=== PATIENT | female | born 2000 | race Caucasian/White ===

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

== ENCOUNTER 2019-11-17 11:50 | Emergency (ER) | payer SELFPAY ==
[~2019-11-17] VITALS: Ht 162.6 cm; Wt 72.7 kg
[~2019-11-17 11:50] MED LIST: ROBAXIN500 MG PO
[2019-11-17 12:09] VITALS: Ht 162.6 cm; Wt 72.7 kg
[2019-11-17 12:53] LABS: BASOPHILS 0.1 % (0-2); EOSINOPHILS 1.4 % (0-7); HEMATOCRIT 41.3 % (36.0-48.0); HEMOGLOBIN 14.3 g/dL (12-16); IMMATURE GRANULOCYTES 0.2 % (0-5); LYMPHOCYTES 21.3 % (15-50); MCH 29.2 pg (26.0-34.0); MCHC 34.6 g/dL (31.0-37.0); MCV 84.3 fL (80.0-100.0); MEAN PLATELET VOLUME 8.9 fL (7.4-10.4); MONOCYTES 7.5 % (2-11); NEUTROPHILS 69.5 % (40-80); PLATELET COUNT 209 10x3/uL (130-400); WBC 9.1 10x3/uL (4.8-10.8)
[2019-11-17 13:07] LABS: AMORPHOUS SEDIMENT <1+ /lpf (NONE SEEN); BACTERIA FEW /hpf (NEGATIVE); BILIRUBIN NEGATIVE (NEGATIVE); EPITHELIAL CELLS 0-5 /hpf (0-5); GLUCOSE NEGATIVE (NEGATIVE); KETONE MODERATE mg/dL (NEGATIVE); NITRITE NEGATIVE (NEGATIVE); RED CELLS - URINE RARE /hpf (0-5); SPECIFIC GRAVITY 1.005 (1.005-1.020); UROBILINOGEN NORMAL (NORMAL); WHITE CELLS - URINE 0-5 /hpf (NEGATIVE)
[2019-11-17 13:10] LABS: CALC OSMOLALITY 270 mosm/kg (275-300); CALCIUM 9.3 mg/dL (8.5-10.1); CARBON DIOXIDE 21.7 mmol/L (21.0-32.0); CHLORIDE - SERUM 103 mmol/L (98-107); CREATININE - SERUM 0.7 mg/dL (0.6-1.3); GLUCOSE 98 mg/dL (74-106); POTASSIUM - SERUM 3.7 mmol/L (3.5-5.1); SODIUM 136 mmol/L (136-145); UREA NITROGEN 9 mg/dL (7-18); eGFR NON AFRICAN AMERICAN > 90 mL/min (90-120)
[2019-11-17] MEDS ORDERED: MACROBID100 MG PO (13:32)
[2019-11-17] MEDS ORDERED: KEFLEX500 MG PO (13:32)
[2019-11-17] MEDS ORDERED: ZOFRAN ODT4 MG/UDTAB PO (13:32)
[2019-11-17 13:37] LABS: ALBUMIN 4.1 g/dL (3.4-5.0); ALKALINE PHOSPHATASE 50 U/L (30-120); ALT (SGPT) 11 U/L (10-68); BILIRUBIN - TOTAL 0.45 mg/dL (0.2-1.3); HCG - QUANTITATIVE (MATERNAL) 70099 mIU/mL; PROTEIN - SERUM 7.4 g/dL (6.4-8.2)
[2019-11-17 15:18] VITALS: BP 132/88
== END 2019-11-17 15:19 | disposition home or self-care (01) ==
LOC: D.ER 11:50
PROVIDERS: Family Medicine
DX: O23.40 Unspecified infection of urinary tract in pregnancy, unspecified trimester (principal); Z3A.00 Weeks of gestation of pregnancy not specified; O21.0 Mild hyperemesis gravidarum

== ENCOUNTER 2019-12-18 15:06 | Outpatient (CLI) | payer SELFPAY ==
[2019-11-17 12:09] VITALS: BMI 27.5
--- NOTE | 2019-12-18 15:03 | NUR ---
RECEIVED TO ROOM FROM CLINIC BY WHEELCHAIR. SHE IS ABLE TO AMBULATE IN TO ROOM WITHOUT ASSISTANCE AND DENIES NEEDING HELP TO CHANGE INTO GOWN. URINE CUP GIVEN FOR SPECIMEN IF SHE IS ABLE TO VOID AT THIS TIME. PT NOTED TO BE TEARFUL BUT WHEN QUESTIONED IF CRYING WAS DUE TO PAIN SHE STATES "NO I'M NOT HURTING" BLUE EMESIS BAG LAYED OUT FOR HER.
--- NOTE | 2019-12-18 15:05 | NUR ---
SHERIDAN IN ADMISSIONS NOTED OF PT ARRIVAL AND ROOM NUMBER.
[~2019-12-18 15:06] MED LIST changes: +KEFLEX500 MG PO; +MACROBID100 MG PO; +ZOFRAN ODT4 MG/UDTAB PO
--- NOTE | 2019-12-18 15:15 | NUR ---
ORDERS FROM DR ROSALES VERIFIED. PT FRIEND COMES OUT TO UNIT DESK ASKING FOR SOME WATER, QUESTIONED IF IT WAS HIMSELF OR PATIENT AND HE STATES "FOR ME" SHOWN WHERE NUTRITION AREA IS LOCATED.
--- NOTE | 2019-12-18 15:18 | NUR ---
FRIEND BACK TO DESK QUESTIONED IF PATIENT CAN HAVE SOMETHING TO DRINK, EXPLAINED AT THIS TIME ORDERS FROM DR ROSALES STATED NOTHING BY MOUTH. HE DOES NOT SAY ANYTHING AND WALKS BACK TO ROOM.
--- NOTE | 2019-12-18 15:27 | NUR ---
FRIEND OUT TO DESK QUESTIONS WHEN/IF PATIENT WOULD BE ALLOWED TO EAT OR DRINK. EXPLAINED THAT AFTER IV FLUIDS HAD BEEN GIVEN AND IF PT FELT BETTER WITHOUT VOMITING DR ROSALES COULD BE CONTACTED FOR NEW ORDERS. HE NODS HIS HEAD AND WALKS BACK TO ROOM.
--- NOTE | 2019-12-18 15:50 | NUR ---
PATIENTS FRIEND COMES OUT AND QUESTIONED WHEN HER DOCTOR WAS GOING TO "SHOW UP AND START HER IV BECAUSE SHE IS HUNGRY AND NEEDS SOMETHING TO DRINK" ATTEMPTED TO EXPLAIN TO HIM AND PATIENT THAT I WOULD BE STARTING HER IV SOON HER IV FLUIDS ARE BROUGHT FROM PHARMACY, IT WAS THEN ASKED WHY DID NOT ALREADY HAVE THEM, EXPLAINED THAT DUE TO TYPE OF FLUIDS TO BE GIVEN IT WAS NOT SOMETHING KEPT ON UNIT AND HAD TO BE PREPARED IN PHARMACY. PHARMACY IS CALLED AT THIS TIME AND PER DANIELLA PHARMACIST IS GETTING THEM READY NOW.
--- NOTE | 2019-12-18 16:08 | NUR ---
JAGUAR STANLEY OF IV FLUIDS RECEIVED FROM PHARMACY. THIS RN TO ROOM, PT NOT IN BED OR BATHROOM, NO PERSONNEL BELONGING ARE LEFT IN THE ROOM. VERIFIED WITH LABOR AND DELIVERY THAT SHE HAD NOT GONE OVER THERE.
--- NOTE | 2019-12-18 16:15 | NUR ---
ALTAGRACIA, SHAREPOINT APPLICATION DEVELOPER, NOTIFIED OF PT LEAVING.
--- NOTE | 2019-12-18 16:18 | NUR ---
ATTMEPTED TO CALL DR ROSALES TO REPORT THAT PT HAD LEFT AMA, NO ANSWER. SPOKE WITH CHELA ON LABOR AND DELIVERY, IS ON HER WAY TO UNIT.
--- NOTE | 2019-12-18 16:52 | NUR ---
DR ROSALES NOTIFIED THAT PT ELOPED.
== END 2019-12-18 16:10 ==
LOC: D.LDO 15:06 → D.WS 15:07 → D.LDO 16:10
PROVIDERS: ATTEND Student in an Organized Health Care Education/Training Program
DX: O26.899 Other specified pregnancy related conditions, unspecified trimester (principal); Z3A.00 Weeks of gestation of pregnancy not specified